=== PATIENT | female | born 1945 | race Caucasian/White ===

== ENCOUNTER → 2018-09-14 | Outpatient (CLI) | payer MEDICAID, MEDICARE ==
[~2018-09-14] MED LIST: FLUO20TA25 PO; HYDR-3240 PO; OLAN1CAP14 PO
== END | disposition home or self-care (01) ==
LOC: RAD 14:25
PROVIDERS: ATTEND Internal Medicine
DX: M16.0 Bilateral primary osteoarthritis of hip (principal); M19.012 Primary osteoarthritis, left shoulder; K59.00 Constipation, unspecified
CPT/HCPCS: 73523